=== PATIENT | female | born 1995 | race Hispanic/Latino ===

== ENCOUNTER 2020-10-23 19:51 | Emergency (ER) | payer OTHER ==
[~2020-10-23] VITALS: Ht 152.4 cm; Wt 64.4 kg
[2020-10-23 21:04] VITALS: BP 125/75
== END 2020-10-23 22:26 | disposition home or self-care (01) ==
LOC: EDH 19:51
DX: S90.122A Contusion of left lesser toe(s) without damage to nail, initial encounter (principal); X58.XXXA Exposure to other specified factors, initial encounter; Y93.89 Activity, other specified; Y92.89 Other specified places as the place of occurrence of the external cause; Y99.8 Other external cause status
CPT/HCPCS: 73660